=== PATIENT | male | born 1930 | race Caucasian/White ===

== ENCOUNTER → 2016-04-30 | Outpatient (CLI) | payer OTHER ==
--- NOTE | 2016-04-30 13:35 | DX ---
KUB, 2 views. History: Rule out constipation. Comparison Study: February 25, 2016. Findings: Extensive postsurgical changes involve the lumbar spine and bilateral hips, similar to prev ious study. Bowel gas pattern is within normal limits, without evidence of small bowel distention or significant fecal retention. Impression: Negative study. Prior lumbar spine and bilateral hip surgery.
== END ==
LOC: BMCIMAGING 12:55
PROVIDERS: ATTEND Physician Assistant
DX: Z13.818 Encounter for screening for other digestive system disorders (principal)

== ENCOUNTER → 2016-06-10 | Outpatient (CLI) | payer OTHER | LOC: BMCIMAGING 14:19 | PROVIDERS: ATTEND Family Medicine | DX: M89.8X1 Other specified disorders of bone, shoulder (principal) ==

== ENCOUNTER → 2016-06-22 | Outpatient (CLI) | payer OTHER | LOC: FIMAGING 14:29 | PROVIDERS: ATTEND Internal Medicine | DX: M25.811 Other specified joint disorders, right shoulder (principal); M12.9 Arthropathy, unspecified; R91.8 Other nonspecific abnormal finding of lung field; I25.10 Atherosclerotic heart disease of native coronary artery without angina pectoris ==

== ENCOUNTER 2017-01-08 11:16 | Inpatient (IN) | payer OTHER ==
--- NOTE | 2017-01-08 12:21 | EDPHY ---
General Narrative: CHIEF COMPLAINT: Weakness of right lower leg HISTORY OF PRESENT ILLNESS: Patient complains of right lower extremity weakness and pain. This started last night. It has been steadily worsening. He has a history of neck pain and remotely low back pain and stenosis status post surgical correction. He says that the neck pain has been ongoing and he has seen his primary care physician and neurologist. He has an MRI of the neck ordered on Wednesday for this. However yesterday the lower extremity weakness worsened and he had a brief episode of paralysis of both legs. This lasted for several minutes and then resolved. Today as weakness of the right lower extremity. He has no saddle anesthesia. No incontinence of bowel or bladder. He has continual neck and low back pain. REVIEW OF SYSTEMS: Ten systems reviewed and are negative unless otherwise noted in the HPI PCP: Dr. Sanabria SPECIALISTS: Dr. Lamb PAST MEDICAL HISTORY: Recurrent DVTs, hypertension, cervical neck pain PAST SURGICAL HISTORY: Lumbar decompression with laminectomy SOCIAL HISTORY: None occur. No alcohol or illicit substance use. Lives in independent living at [facility] FAMILY HISTORY: Noncontributory EXAMINATION General Appearance: Alert, no distress Head: normocephalic, atraumatic. No Leos sign. No clonus. No hematoma or depression. Eyes: Bilateral arcus note. Pupils equal and round, no conjunctival pallor or injection. EOMs intact. No nystagmus ENT, Mouth: Mucous membranes moist. Airway patent Neck: Normal inspection, supple, non-tender. Painless range of motion all planes. No crepitus, step-off or deformity. Respiratory: Lungs are clear to auscultation. No wheezing or rhonchi or crackles Cardiovascular: Regular rate and rhythm. No murmur Gastrointestinal: Abdomen is soft and nontender Back: non-tender, no bony abnormalities Neurological: GCS 15. A&O, nonfocal, normal gait with his cane. There is weakness in the right lower extremity. The strength at the knee and ankle is 2/ 5 compared to 5/5 in the left lower extremity. No foot drop. Normal sharp and dull sensation. Normal proprioception of the right great toe. Patellar reflexes symmetric Skin: Warm and dry, no rash. No petechiae or purpura. Multiple age spots Extremities: Nontender, no pedal edema. Decreased range of motion of the right lower extremity. Range of motion of the left leg and both arms are intact. Psychiatric: Mood and affect normal DIFFERENTIAL DIAGNOSES: Including but not limited to lumbar radiculopathy, cervical radiculopathy, acute cord compression, cauda equina, weakness, dehydration, neuropathy MDM: 12:10 p.m. Intermittent and increasing weakness of the right lower extremity with a short episode of lower extremity paralysis yesterday. Patient is on Coumadin. He has had ongoing neck pain and has an MRI ordered for Wednesday. He has a history of low back pain status post surgery for stenosis. I have ordered CT scan of the head due to the fall and taking Coumadin, despite any outward signs of trauma or evidence of intracranial hemorrhage. I have also ordered MRIs of the cervical spine and lumbar spine. Case discussed with Dr. Mead and he is in agreement with the plan thus far. 1:02 p.m. Case discussed with radiologist Dr. Louie. CT scan of the head reveals no acute findings. There are chronic changes as noted 2:15 p.m. Patient re-evaluated. I have updated him regarding the negative CT scan findings. He is currently being taken to MRI at this time. He is in no acute distress. 3:20 p.m. Patient re-evaluated. He is just return for MRI. He has complained of increasing pain in the right leg, thus I have ordered pain medication. Examination at this time reveals hyper paresthesia of the right anterior thigh. 3:35 p.m. Contacted by radiologist Dr. Louie. MRI of the cervical spine reveals multilevel degenerative disc disease. No acute findings. MRI of the lumbar spine is not yet been read. 4:12 p.m. Contacted by radiologist Dr. Louie. MRI of the lumbar spine findings as documented. Complex findings. Reviewed in detail with him. Case discussed with Dr. Simmons, and we will evaluate in conjunction. 4:45 p.m. Case discussed with neurosurgeon Dr. Medina. I discussed the MRI findings of the lumbar spine. She recommends that the patient stay in the hospital for evaluation and she will provide consultation. 4:53 p.m. I have updated the patient regarding the findings and the recommendation by neurosurgeon, myself and Dr. Simmons that he stay in the hospital. He is declining to stay at this time. He has agreed to attempt a road test prior to making this decision. 5:10 p.m. After multiple conversations with the patient with myself and Dr. Simmons, the patient has agreed to stay. I do feel this is the safest drop for the patient as he is very unsteady on his feet with significant weakness of the right lower extremity. Neurosurgeon Dr. Medina will provide consultation. I will contact the hospitalist for admission. 5:18 p.m. Case discussed with hospitalist Dr. Herbert, and patient will be admitted to hospitalist. He is admitted in stable condition. Neurosurgery Dr. Medina will provide consultation. - Diagnostics Imaging Results: Imaging Impressions Head CT 01/08/17 12:23 Impression: 1. Elderly brain with atrophy and probable white matter small vessel disease. 2. Negative for hemorrhage or other posttraumatic sequela. Results called and discussed with Mendez Eng PA-C on 01/08/2017 at 13:05 Cervical Spine MRI 01/08/17 12:33 Impression: 1. Negative for central canal stenosis or cord compression. 2. Central and rightward ventral defect consistent with a small subligamentous disk herniation at C7-T1 resulting in mild impingement on the right lateral recess as well as the medial aspect of the right neural foramen. 3. Multilevel spondylosis as detailed above with findings at each specific level. Results called and discussed with Mendez Eng PA-C on 01/08/2017 at 1532 hours. Lumbar Spine MRI 01/08/17 12:33 Impression: 1. Severe central canal stenosis and bilateral lateral recess stenosis at L1-L2 level. 2. Borderline central canal stenosis at L3-L4. 3. Equivocal nerve root clumping could reflect arachnoiditis. 4. Postoperative changes of lumbar fusion at L4-L5. 5. Multilevel spondylosis with findings at specific levels detailed above. Results called and discussed with Mendez Eng PA-C on 01/08/2017 at 1611 hours. - History Smoking Status: Former smoker - Objective Vital Signs: Initial Vital Signs Temperature (C) 98.1 F 01/08/17 11:20 Heart Rate 87 01/08/17 11:20 Respiratory Rate 16 01/08/17 11:20 Blood Pressure 168/119 H 01/08/17 11:20 O2 Sat (%) 98 01/08/17 11:20 O2 Delivery Mode Room Air Allergies/Adverse Reactions: Penicillins Allergy (Verified 05/14/15 13:07) Home Medications: Medication Instructions Recorded Coumadin 05/14/15 Lisinopril 05/14/15 Tamsulosin HCl 05/14/15 Tiazac 05/14/15 Laboratory Results: Laboratory Results 01/08/17 12:25 01/08/17 12:25 01/08/17 01/08/17 01/08/17 12:25 12:25 12:25 WBC RBC Hgb Hct 41.4 % % (40.0-51.0) MCV MCH MCHC RDW Plt Count MPV Neut % (Auto) Lymph % (Auto) [place] % (Auto) Eos % (Auto) Baso % (Auto) Nucleat RBC Rel Count Absolute Neuts (auto) Absolute Lymphs (auto) Absolute Monos (auto) Absolute Eos (auto) Absolute Basos (auto) Absolute Nucleated RBC Immature Gran % Immature Gran # ESR 48 MM/HR H MM/HR (0-20) PT 33.1 SEC H SEC (12.0-15.0) INR 3.19 H (0.83-1.16) APTT 47.9 SEC H SEC (23.0-38.0) Sodium Potassium Chloride Carbon Dioxide Anion Gap BUN Creatinine Estimated GFR Glucose Calcium C-Reactive Protein 128.0 mg/L H mg/L (<10.0) 01/08/17 01/08/17 12:25 12:25 WBC 11.41 10^3/uL H 10^3/uL (3.80-9.50) RBC 4.87 10^6/uL 10^6/uL (4.40-6.38) Hgb 14.4 g/dL g/dL (13.7-17.5) Hct 41.0 % % (40.0-51.0) MCV 84.2 fL fL (81.5-99.8) MCH 29.6 pg pg (27.9-34.1) MCHC 35.1 g/dL g/dL (32.4-36.7) RDW 13.7 % % (11.5-15.2) Plt Count 229 10^3/uL 10^3/uL (150-400) MPV 8.9 fL fL (8.7-11.7) Neut % (Auto) 82.4 % H % (39.3-74.2) Lymph % (Auto) 5.3 % L % (15.0-45.0) [place] % (Auto) 11.3 % % (4.5-13.0) Eos % (Auto) 0.1 % L % (0.6-7.6) Baso % (Auto) 0.4 % % (0.3-1.7) Nucleat RBC Rel Count 0.0 % % (0.0-0.2) Absolute Neuts (auto) 9.40 10^3/uL H 10^3/uL (1.70-6.50) Absolute Lymphs (auto) 0.61 10^3/uL L 10^3/uL (1.00-3.00) Absolute Monos (auto) 1.29 10^3/uL H 10^3/uL (0.30-0.80) Absolute Eos (auto) 0.01 10^3/uL L 10^3/uL (0.03-0.40) Absolute Basos (auto) 0.04 10^3/uL 10^3/uL (0.02-0.10) Absolute Nucleated RBC 0.00 10^3/uL 10^3/uL (0-0.01) Immature Gran % 0.5 % % (0.0-1.1) Immature Gran # 0.06 10^3/uL 10^3/uL (0.00-0.10) ESR PT INR APTT Sodium 137 mEq/L mEq/L (134-144) Potassium 3.4 mEq/L L mEq/L (3.5-5.2) Chloride 102 mEq/L mEq/L (97-110) Carbon Dioxide 22 mEq/l mEq/l (22-31) Anion Gap 13 mEq/L mEq/L (8-16) BUN 16 mg/dL mg/dL (7-23) Creatinine 1.3 mg/dL mg/dL (0.7-1.3) Estimated GFR 53 Glucose 106 mg/dL H mg/dL (70-100) Calcium 9.7 mg/dL mg/dL (8.5-10.4) C-Reactive Protein Medications Given: Discontinued Medications Morphine Sulfate (Morphine) 2 mg IVP EDNOW ONE Stop: 01/08/17 15:23 Last Admin: 01/08/17 15:51 Dose: 2 mg Ondansetron HCl (Zofran) 4 mg IVP EDNOW ONE Stop: 01/08/17 15:23 Last Admin: 01/08/17 15:51 Dose: 4 mg Departure - Departure Disposition: [facility] Inpatient Acute Clinical Impression: Right leg weakness, Spinal stenosis, lumbar region with neurogenic claudication , Hyperesthesia Condition: Good Instructions: Lumbar Spinal Stenosis (ED) Referrals: Toño Sanabria MD [Primary Care Provider] - As per Instructions
[2017-01-08 12:34] LABS: % IMMATURE GRANULYOCYTES 0.5 % (0.0-1.1); ABSOLUTE IMMATURE GRANULOCYTES 0.06 10^3/uL (0.00-0.10); ADD DIFF? NO; ADD MORPH? NO; ADD SCAN? NO; ATYPICAL LYMPHOCYTE FLAG 0 (0-99); FRAGMENT RBC FLAG 0 (0-99); HEMOGLOBIN 14.4 g/dL (13.7-17.5); LEFT SHIFT FLG 0 (0-99); LIPEMIA HEMOLYSIS FLAG 90 (0-99); MEAN CELL HEMOGLOBIN 29.6 pg (27.9-34.1); MEAN CELL HEMOGLOBIN CONCENTR. 35.1 g/dL (32.4-36.7); MEAN CELL VOLUME 84.2 fL (81.5-99.8); MEAN PLATELET VOLUME 8.9 fL (8.7-11.7); PLATELET CLUMPS FLAG 0 (0-99); PLATELET COUNT 229 10^3/uL (150-400); RED BLOOD CELL COUNT 4.87 10^6/uL (4.40-6.38); RED CELL DISTRIBUTION WIDTH 13.7 % (11.5-15.2)
[2017-01-08 12:45] LABS: INR 3.19 (0.83-1.16); PROTIME(PATIENT) 33.1 SEC (12.0-15.0)
[2017-01-08 12:46] LABS: APTT 47.9 SEC (23.0-38.0)
[2017-01-08 12:51] LABS: ANION GAP 13 mEq/L (8-16); CALCIUM 9.7 mg/dL (8.5-10.4); CARBON DIOXIDE 22 mEq/l (22-31); CHLORIDE 102 mEq/L (97-110); CREATININE 1.3 mg/dL (0.7-1.3); GLOMERULAR FILTRATION RATE 53; GLUCOSE 106 mg/dL (70-100); POTASSIUM 3.4 mEq/L (3.5-5.2); SODIUM 137 mEq/L (134-144)
[2017-01-08 13:27] LABS: HEMATOCRIT 41.4 % (40.0-51.0)
[2017-01-08] MEDS ORDERED: ONDANSETRON 4 MG/2 ML VIAL IVP ONE (15:22)
[2017-01-08] MEDS ORDERED: ONDANSETRON DISINTEGRATING 4 MG TAB PO PRN (18:19)
[2017-01-08] MEDS ORDERED: ALBUTEROL 3 ML DEYVIAL IH PRN (18:19)
[2017-01-08] MEDS ORDERED: LORazepam 0.5 MG TAB PO PRN (18:19)
[2017-01-08] MEDS ORDERED: ACETAMINOPHEN 325 MG TAB PO PRN (18:19)
[2017-01-08] MEDS ORDERED: ONDANSETRON 4 MG/2 ML VIAL IVP PRN (18:19)
[2017-01-08] MEDS ORDERED: hydrALAZINE 20 MG/ML VIAL IVP PRN (18:21)
[2017-01-08] MEDS ORDERED: PROTOCOL MAGNESIUM 1 DOSE IV PRN (18:21)
[2017-01-08] MEDS ORDERED: PROTOCOL POTASSIUM 1 DOSE MISC PRN (18:21)
--- NOTE | 2017-01-08 19:28 | GCON ---
[f rep st] CONSULTATION DATE OF CONSULTATION: 01/08/2017 Consultation in the emergency room at approximately 5:30 p.m. REASON FOR CONSULTATION: Weakness of right lower extremity, status post fall. HOSPITAL COURSE/HISTORY OF MAJOR MEDICAL FINDINGS: Patient is an 86-year-old gentleman who last night had a fall at home. He does use a cane normally to ambulate and has been seeing a neurologist for the neuropathy in his feet as well as his frequent falls. He did have 3 episodes of stool incontinence, which he saw a GI doctor for, which they told him to monitor closely. He does not have any saddle anesthesia or any groin numbness. He denies any arm numbness, tingling, pain or weakness, but based on his recurrent falls he was recommended to undergo an MRI of his neck. He presented to the ER today after having a fall last night, as his was already here at [facility] obtaining an MRI of her neck and wanted to have his leg checked out. REVIEW OF SYSTEMS: Negative other than what is stated in the HPI. Please see the pertinent negatives, pertinent positives. PAST MEDICAL HISTORY: Significant for recurrent DVTs for which he is on Coumadin for, hypertension, cervical neck pain. PAST SURGICAL HISTORY: Significant for lumbar fusion done in [place] back in 2005. He has had bilateral hip replacements as well as a tonsillectomy. SOCIAL HISTORY: The patient does not drink any alcohol or use illicit drugs. He lives in an independent living facility with his who is at bedside today. FAMILY HISTORY: Noncontributory. ALLERGIES: Penicillin. MEDICATIONS: Coumadin, lisinopril, tamsulosin, and Tiazac. PHYSICAL EXAM: VITALS: Temperature is 98.1, heart rate is 87, respiratory rate is 16, BP is 160/119. He is 98% on room air. NEUROLOGIC: Patient is in no acute distress. He is alert and oriented x3. Answers questions appropriately. His affect is appropriate to given situation. Cranial nerves 2- 12 are grossly intact. EOMI and PERRLA. The patient is 5/5 and equal in his bilateral upper and bilateral lower extremities including his deltoids, triceps , biceps, wrist flexors, extensors, interossei, intrinsic platform inspector, iliopsoas, hamstrings, quadriceps, plantar flexion, dorsiflexion, EHL. His sensation is intact in his bilateral upper and bilateral lower extremities. Negative Babinski. Negative clonus bilaterally. Patient underwent a head CT, which was negative for any acute intracranial abnormality. Patient underwent a cervical spine MRI, which is significant for a central disk bulge at T2-3 with an effacement of the subarachnoid space without definitive cord compression. This is only evaluated in the sagittal view. At C7-T1, there is mild impingement of the right lateral recess but there is no cord compression noted. Lumbar spine MRI demonstrated severe canal stenosis with bilateral recess stenosis at L1-2 with borderline canal stenosis at L3-4. There are postoperative changes and lumbar fusion noted at L4-5. ASSESSMENT AND PLAN: Patient is an 86-year-old gentleman with evidence of lumbar stenosis at L2-3, who has been having frequent falls. He will be admitted to the medical service for optimization of his medical management. We would recommend PT/OT at this time and Medrol dose pack, if okay with medicine. He was seen by Dr. Vásquez in the emergency room. He is currently on Coumadin, so would need to be cleared by Medicine to come to be off of this for an L2/3 ILESI if PT and Medrol dose fail to improve his symptoms. Will continue to follow, please notify neurosurgery if any change in neuro/motor exam. /[id number]/MODL MTDD
--- NOTE | 2017-01-08 19:34 | PDGENHP ---
History and Physical - Chief Complaint Right leg weakness - History of Present Illness 86 yo male with hx of back pain and LE neuropathy p/w right leg weakness since yesterday night. In the ED, MRI obtained and c/w significant Lumbar stenosis. Dr. Medina with NS consulted. He has no saddle anesthesia. No incontinence of bowel or bladder. Yesterday he also had a brief transient episode of paralysis of both legs. He is currently able to move both legs but ambulation is difficult. He has a history of neck pain and remotely low back pain and stenosis status post surgical correction. He says that the neck pain has been ongoing and he has seen his primary care physician and neurologist. He has an MRI of the neck ordered on Wednesday for this. He denies fevers, SOB, N/V, leg edema. No other weakness PCP: Dr. Sanabria PAST MEDICAL HISTORY: Recurrent DVTs, hypertension, cervical neck pain PAST SURGICAL HISTORY: Lumbar decompression with laminectomy SOCIAL HISTORY: None occur. No alcohol or illicit substance use. Lives in independent living at [facility] FAMILY HISTORY: Noncontributory History Information - Allergies/Home Medication List Allergies/Adverse Reactions: Penicillins Allergy (Verified 05/14/15 13:07) Home Medications: Carvedilol [Coreg (*)] 12.5 mg PO BIDMEAL 01/08/17 [Last Taken 01/07/17] Lisinopril [Zestril 20 mg (*)] 20 mg PO DAILY 01/08/17 [Last Taken 01/07/17] Tamsulosin HCl [Flomax 0.4 MG (*)] 0.4 mg PO DAILY 01/08/17 [Last Taken 01/07/17 ] Warfarin Sodium [Coumadin 1MG (*)] 0.5 mg PO MOTUWEFRSA 01/08/17 [Last Taken ] Warfarin Sodium [Coumadin 1MG (*)] 1 mg PO SUTH 01/08/17 [Last Taken 01/07/17] Warfarin Sodium [Coumadin 3MG (*)] 3 mg PO SUTH 01/08/17 [Last Taken 01/07/17] traZODone [traZODONE 50MG (*)] 50 mg PO HS 01/08/17 [Last Taken 01/07/17] I have personally reviewed and updated: family history, medical history, social history - Social History Smoking Status: Former smoker Review of Systems Review of Systems: ROS: 10pt was reviewed & negative except for what was stated in HPI & below Physical Exam Physical Exam: Temp Pulse Resp BP Pulse Ox 36.8 C 98 16 166/90 H 96 01/08/17 18:43 01/08/17 18:43 01/08/17 18:43 01/08/17 18:43 01/08/17 18:43 Constitutional: no apparent distress, appears nourished Eyes: PERRL, EOMI Ears, Nose, Mouth, Throat: moist mucous membranes, hearing normal Cardiovascular: regular rate and rhythym Respiratory: no respiratory distress, no rales or rhonchi, clear to auscultation Gastrointestinal: normoactive bowel sounds, soft, non-tender abdomen Skin: warm, normal color Neurologic: AAOx3 Psychiatric: interacting appropriately, not anxious, not encephalopathic, thought process linear Lab Data & Imaging Review 01/08/17 12:25 01/08/17 12:25 WBC 11.41 10^3/uL (3.80-9.50) H 01/08/17 12:25 RBC 4.87 10^6/uL (4.40-6.38) 01/08/17 12:25 Hgb 14.4 g/dL (13.7-17.5) 01/08/17 12:25 Hct 41.4 % (40.0-51.0) 01/08/17 12:25 MCV 84.2 fL (81.5-99.8) 01/08/17 12:25 MCH 29.6 pg (27.9-34.1) 01/08/17 12:25 MCHC 35.1 g/dL (32.4-36.7) 01/08/17 12:25 RDW 13.7 % (11.5-15.2) 01/08/17 12:25 Plt Count 229 10^3/uL (150-400) 01/08/17 12:25 MPV 8.9 fL (8.7-11.7) 01/08/17 12:25 Neut % (Auto) 82.4 % (39.3-74.2) H 01/08/17 12:25 Lymph % (Auto) 5.3 % (15.0-45.0) L 01/08/17 12:25 [place] % (Auto) 11.3 % (4.5-13.0) 01/08/17 12:25 Eos % (Auto) 0.1 % (0.6-7.6) L 01/08/17 12:25 Baso % (Auto) 0.4 % (0.3-1.7) 01/08/17 12:25 Nucleat RBC Rel Count 0.0 % (0.0-0.2) 01/08/17 12:25 Absolute Neuts (auto) 9.40 10^3/uL (1.70-6.50) H 01/08/17 12:25 Absolute Lymphs (auto) 0.61 10^3/uL (1.00-3.00) L 01/08/17 12:25 Absolute Monos (auto) 1.29 10^3/uL (0.30-0.80) H 01/08/17 12:25 Absolute Eos (auto) 0.01 10^3/uL (0.03-0.40) L 01/08/17 12:25 Absolute Basos (auto) 0.04 10^3/uL (0.02-0.10) 01/08/17 12:25 Absolute Nucleated RBC 0.00 10^3/uL (0-0.01) 01/08/17 12:25 Immature Gran % 0.5 % (0.0-1.1) 01/08/17 12:25 Immature Gran # 0.06 10^3/uL (0.00-0.10) 01/08/17 12:25 ESR 48 MM/HR (0-20) H 01/08/17 12:25 PT 33.1 SEC (12.0-15.0) H 01/08/17 12:25 INR 3.19 (0.83-1.16) H 01/08/17 12:25 APTT 47.9 SEC (23.0-38.0) H 01/08/17 12:25 Sodium 137 mEq/L (134-144) 01/08/17 12:25 Potassium 3.4 mEq/L (3.5-5.2) L 01/08/17 12:25 Chloride 102 mEq/L (97-110) 01/08/17 12:25 Carbon Dioxide 22 mEq/l (22-31) 01/08/17 12:25 Anion Gap 13 mEq/L (8-16) 01/08/17 12:25 BUN 16 mg/dL (7-23) 01/08/17 12:25 Creatinine 1.3 mg/dL (0.7-1.3) 01/08/17 12:25 Estimated GFR 53 01/08/17 12:25 Glucose 106 mg/dL (70-100) H 01/08/17 12:25 Calcium 9.7 mg/dL (8.5-10.4) 01/08/17 12:25 C-Reactive Protein 128.0 mg/L (<10.0) H 01/08/17 12:25 Assessment & Plan Assessment: #Right leg weakness #Lumbar stenosis #LE Neuropathy #HTN, elevated BP #Chronic AC with elevated INR with no evidence of bleed #Hypokalemia, mild Plan: -Admit -Dr. Medina and NS to eval -Pain and symptom mgmt -Pharm to dose coumadin. CT Brain negative -restart BP meds, he has not taken any today -Replace K per protocol. Check Mg -PT/OT
[2017-01-08 20:45] LABS: POTASSIUM 3.4 mEq/L (3.5-5.2)
[2017-01-08] MEDS ORDERED: POTASSIUM CL 10 MEQ TAB PO ONE (20:47)
[2017-01-08] MEDS: CARVEDILOL 25 MG TAB PO SCH (20:53)
[2017-01-08] MEDS: LISINOPRIL 20 MG TAB PO SCH (20:54)
[2017-01-08] MEDS: traZODone 50 MG TAB PO SCH (20:55)
[2017-01-09] MEDS: oxyCODONE IR 5 MG TAB PO PRN ×5 (02:15→21:11)
[2017-01-09 05:39] LABS: % IMMATURE GRANULYOCYTES 0.5 % (0.0-1.1); ABSOLUTE IMMATURE GRANULOCYTES 0.05 10^3/uL (0.00-0.10); ADD DIFF? NO; ADD MORPH? NO; ADD SCAN? NO; ATYPICAL LYMPHOCYTE FLAG 0 (0-99); FRAGMENT RBC FLAG 0 (0-99); HEMATOCRIT 33.9 % (40.0-51.0); HEMOGLOBIN 11.7 g/dL (13.7-17.5); LEFT SHIFT FLG 10 (0-99); LIPEMIA HEMOLYSIS FLAG 90 (0-99); MEAN CELL HEMOGLOBIN 29.4 pg (27.9-34.1); MEAN CELL HEMOGLOBIN CONCENTR. 34.5 g/dL (32.4-36.7); MEAN CELL VOLUME 85.2 fL (81.5-99.8); MEAN PLATELET VOLUME 9.5 fL (8.7-11.7); PLATELET CLUMPS FLAG 0 (0-99); PLATELET COUNT 194 10^3/uL (150-400); RED BLOOD CELL COUNT 3.98 10^6/uL (4.40-6.38); RED CELL DISTRIBUTION WIDTH 13.8 % (11.5-15.2)
[2017-01-09 05:56] LABS: ANION GAP 11 mEq/L (8-16); CALCIUM 9.2 mg/dL (8.5-10.4); CARBON DIOXIDE 21 mEq/l (22-31); CHLORIDE 104 mEq/L (97-110); CREATININE 1.4 mg/dL (0.7-1.3); GLOMERULAR FILTRATION RATE 48; GLUCOSE 98 mg/dL (70-100); MAGNESIUM 1.8 mg/dL (1.6-2.3); POTASSIUM 3.7 mEq/L (3.5-5.2); SODIUM 136 mEq/L (134-144)
[2017-01-09] MEDS: TAMSULOSIN HCL 0.4 MG CAP PO SCH (07:48)
[2017-01-09] MEDS: LISINOPRIL 20 MG TAB PO SCH (07:48)
[2017-01-09] MEDS: CARVEDILOL 25 MG TAB PO SCH ×2 (07:48→18:07)
--- NOTE | 2017-01-09 08:26 | NEUSURGPN ---
Assessment/Plan: 86 y/o male with lumbar stenosis at L1/2 with right leg weakness and pain. 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 He also has a T2/3 disc bulge that is noted on c spine MRI. Can consider thoracic MRI if no improvement with LE symptoms, worsening myelopathic symptoms -Pain improved this morning -Would continue to optimize pain management -PT/OT -Can try Medrol dose pack if compatible with anticoagulation -If no progress can consider L1/2 ILESI but would need need to normalize INR -Discussed with Dr. Lyle -Patient should follow up with Dr. Lyle in in clinic 2-3 weeks after discharge -Please notify NS with any change in neuro/motor exam Subjective: leg pain improved, strength stable. Objective: NAD A&Ox3 MAEx4 5/5 and equal in BUE and BLE, except right quad/IL 4-/5. Decreased sensation in feet - Physician Discussed Patient with : [facility] Neurosurgery Physical Exam - Vitals, I&O, Labs I and O 01/08/17 01/09/17 01/10/17 05:59 05:59 05:59 Output Total 100 Balance -100 Weight 83.915 kg Output: Urine (ml) 100 Urinal 100 Other: Intake Quantity Yes Sufficient Number of Voids Urinal 2 Vital Signs Temp Pulse Resp BP Pulse Ox 37.1 C 60 12 144/64 H 93 01/09/17 07:29 01/09/17 07:48 01/09/17 07:29 01/09/17 07:48 01/09/17 07:29 Laboratory Results 01/09/17 05:01 01/09/17 05:01 ICD10 Worksheet Patient Problems: Problems Problem Status Onset Hyperesthesia Acute Right leg weakness Acute Spinal stenosis, lumbar region with neurogenic claudication Acute
[2017-01-09 12:04] LABS: INR 3.16 (0.83-1.16); PROTIME(PATIENT) 32.9 SEC (12.0-15.0)
[2017-01-09] MEDS ORDERED: POTASSIUM CL 10 MEQ TAB PO ONE ×2 (14:11→19:28)
--- NOTE | 2017-01-09 14:46 | HOSPPROG ---
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 RLE weakness: attributable to L1L2 spine disease start steroids PT/OT daily appreciate neurosurgery input htn: continue meds VTE: warfarin therapy not a contraindication to steroids hold warfarin today given supratherapeutic INR pain: prn oxycodone dispo :inpatient Subjective: 35 minutes spent at bedside discussing plan of care ;45 min total Objective: Vital Signs Temp Pulse Resp BP Pulse Ox 36.7 C 55 L 10 L 117/59 L 95 01/09/17 11:57 01/09/17 11:57 01/09/17 11:57 01/09/17 11:57 01/09/17 11:57 Laboratory Results 01/09/17 05:01 01/09/17 05:01 01/08/17 01/09/17 01/10/17 05:59 05:59 05:59 Output Total 100 Balance -100 PT 32.9 SEC (12.0-15.0) H 01/09/17 10:55 INR 3.16 (0.83-1.16) H 01/09/17 10:55 - Physical Exam Constitutional: no apparent distress, appears nourished Eyes: PERRL, anicteric sclera Ears, Nose, Mouth, Throat: moist mucous membranes, hearing normal Cardiovascular: regular rate and rhythym, no murmur, rub, or gallop Respiratory: no respiratory distress, no rales or rhonchi Gastrointestinal: normoactive bowel sounds, soft, non-tender abdomen Genitourinary: no bladder fullness, No wells in urethra Skin: warm, normal color Musculoskeletal: full muscle strength, no muscle tenderness Neurologic: AAOx3, sensation intact bilaterally Psychiatric: interacting appropriately ICD10 Worksheet Patient Problems: Problems Problem Status Onset Hyperesthesia Acute Right leg weakness Acute Spinal stenosis, lumbar region with neurogenic claudication Acute
--- NOTE | 2017-01-09 15:06 | ASMTCMCOM ---
CM Note CM Note Notes: OT eval pending, BUSINESS REPRESENTATIVE clears pt, PT rec HHC vs. SNF. Spoke w pt and Consuelo about d/c plan of care. Pt may opt for steroid injections to treat spine disease and hopes he will progress to be able to return home to the [facility] (there he can access PT/OT). Pt will consider SNF if he does not make progress. Left SNF choice list. Pt has a good local support system. Date Signed: 01/09/2017 03:05 PM Electronically Signed By:COSMO Cannon
--- NOTE | 2017-01-09 15:13 | PDMN ---
Medical Necessity Medical necessity: C/M review: est. 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
[2017-01-09] MEDS: methylPREDNISolone 4 MG TAB PO SCH ×4 (15:17→20:29)
[2017-01-09 18:32] LABS: POTASSIUM 3.8 mEq/L (3.5-5.2)
[2017-01-09] MEDS: traZODone 50 MG TAB PO SCH (20:30)
[2017-01-10 05:30] LABS: INR 3.67 (0.83-1.16); PROTIME(PATIENT) 37.1 SEC (12.0-15.0)
[2017-01-10 05:33] LABS: MAGNESIUM 2.2 mg/dL (1.6-2.3); POTASSIUM 4.3 mEq/L (3.5-5.2)
[2017-01-10] MEDS: oxyCODONE IR 5 MG TAB PO PRN ×4 (08:27→23:49)
[2017-01-10] MEDS: CARVEDILOL 25 MG TAB PO SCH ×2 (08:29→18:37)
[2017-01-10] MEDS: LISINOPRIL 20 MG TAB PO SCH (08:29)
[2017-01-10] MEDS: TAMSULOSIN HCL 0.4 MG CAP PO SCH (08:30)
[2017-01-10] MEDS: methylPREDNISolone 4 MG TAB PO SCH ×3 (08:30→18:37)
--- NOTE | 2017-01-10 12:00 | HOSPPROG ---
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 RLE weakness: attributable to L1L2 spine disease start steroids PT/OT daily appreciate neurosurgery input htn: continue meds VTE: warfarin therapy not a contraindication to steroids hold warfarin today given supratherapeutic INR pain: prn oxycodone dispo :inpatient Subjective: doing better today. walked w PT and walker Objective: Vital Signs Temp Pulse Resp BP Pulse Ox 36.5 C 71 16 188/83 H 97 01/10/17 08:00 01/10/17 08:29 01/10/17 08:00 01/10/17 08:29 01/10/17 08:00 Laboratory Results 01/10/17 05:07 01/09/17 01/10/17 01/11/17 05:59 05:59 05:59 Intake Total 1000 Output Total 450 400 Balance 550 -400 PT 37.1 SEC (12.0-15.0) H 01/10/17 05:07 INR 3.67 (0.83-1.16) H 01/10/17 05:07 - Physical Exam Constitutional: no apparent distress, appears nourished Eyes: PERRL, anicteric sclera Ears, Nose, Mouth, Throat: moist mucous membranes, hearing normal Cardiovascular: regular rate and rhythym, no murmur, rub, or gallop Respiratory: no respiratory distress, no rales or rhonchi Gastrointestinal: normoactive bowel sounds, soft, non-tender abdomen Genitourinary: no bladder fullness, No wells in urethra Skin: warm, normal color Musculoskeletal: No full muscle strength Neurologic: AAOx3 ICD10 Worksheet Patient Problems: Problems Problem Status Onset Hyperesthesia Acute Right leg weakness Acute Spinal stenosis, lumbar region with neurogenic claudication Acute
--- NOTE | 2017-01-10 14:46 | NEUSURGPN ---
Assessment/Plan: 86 y/o male with lumbar stenosis at L1/2 with right leg weakness and pain. 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 He also has a T2/3 disc bulge that is noted on c spine MRI. Can consider thoracic MRI if no improvement with LE symptoms, worsening myelopathic symptoms -Pain and right leg strength improved this morning -Would continue to optimize pain management -PT/OT -Continue steroids -If no progress can consider L1/2 ILESI but would need need to normalize INR -Discussed with Dr. Lyle -Patient should follow up with Dr. Lyle in in clinic 2-3 weeks after discharge -Please notify NS with any change in neuro/motor exam Subjective: pain and strength improved. Pain worse with movement Objective: NAD A&Ox3 MAEx4, 5/5 adn equal except right IL/quad 4+/5 - Physician Discussed Patient with : Th[facility] Neurosurgery Physical Exam - Vitals, I&O, Labs I and O 01/09/17 01/10/17 01/11/17 05:59 05:59 05:59 Intake Total 1000 Output Total 450 400 Balance 550 -400 Intake: Oral (ml) 1000 Output: Urine (ml) 450 400 Urinal 450 400 Other: Intake Quantity Yes Sufficient Number of Voids Urinal 1 Post Void Residual Scan Volume (ml) Urinal 619 Vital Signs Temp Pulse Resp BP Pulse Ox 36.5 C 76 16 142/71 H 96 01/10/17 08:00 01/10/17 12:00 01/10/17 12:00 01/10/17 12:00 01/10/17 12:00 Laboratory Results 01/10/17 05:07 ICD10 Worksheet Patient Problems: Problems Problem Status Onset Hyperesthesia Acute Right leg weakness Acute Spinal stenosis, lumbar region with neurogenic claudication Acute
--- NOTE | 2017-01-10 17:56 | ASMTCMCOM ---
CM Note CM Note Notes: Long talk with patient and . They are concerned that the steroids and pain medications won't be a cure and wondered what to do if patient has a reccurence of leg weakness. I encouraged them to call 911 and come back to the hospital and we would figure aout a new plan. At this time patient will be going home with HC. They were given a HC list and decided on [facility]. [facility] notified and sent a referral. Date Signed: 01/10/2017 05:56 PM Electronically Signed By:Felicita Mitchell LCSW
[2017-01-10] MEDS ORDERED: methylPREDNISolone 4 MG TAB PO SCH (21:00)
[2017-01-10] MEDS: traZODone 50 MG TAB PO SCH (21:10)
[2017-01-11 05:04] LABS: INR 3.91 (0.83-1.16)
[2017-01-11] MEDS ORDERED: hydrALAZINE 20 MG/ML VIAL IVP PRN (07:17)
--- NOTE | 2017-01-11 07:20 | NEUSURGPN ---
Assessment/Plan: Assessment: 86 y/o male admitted with lumbar stenosis at L1/2 with right leg weakness and pain Plan: -he has diffuse degeneration in cervical spine without cord compression. He also has a T2/3 disc bulge that is noted on C spine MRI. Can consider thoracic MRI if no improvement with LE symptoms or with worsening myelopathic symptoms. Pt better this am. Strength is 5/5 -Pain and right leg strength continue to improve this morning -ok from NS to dc home if ok with IM -Would continue to optimize pain management/continue with steroids -continue with PT/OT -Continue steroids -Discussed with Dr. Lyle -Patient should follow up with Dr. Lyle in in clinic 2-3 weeks after discharge -Please notify NS with any change in neuro/motor exam -pt understands and agrees Subjective: Awake and alert. NAD. Eating/drinking and voiding. No f/c/n/v/d. No pedraza/neck/ chest/abd or gu complaints. Objective: AAO x 3, PERRLA/EOMI CN 2-12 grossly intact +lt touch NAD MAEx4 5/5 BUE/BLE = Neuro Check Frequency: per routine Urinary Catheter in Place: No - Physician Discussed Patient with : [facility] Neurosurgery Physical Exam - Vitals, I&O, Labs I and O 01/10/17 01/11/17 01/12/17 05:59 05:59 05:59 Intake Total 1000 Output Total 450 1325 Balance 550 -1325 Intake: Oral (ml) 1000 Output: Urine (ml) 450 1325 Urinal 450 1325 Other: Intake Quantity Yes Yes Sufficient Number of Voids Urinal 1 1 Bladder Scan Volume (ml) Urinal 606 Post Void Residual Scan Volume (ml) Urinal 619 514 Vital Signs Temp Pulse Resp BP Pulse Ox 36.6 C 50 L 16 177/74 H 92 01/11/17 04:00 01/11/17 04:00 01/11/17 04:00 01/11/17 06:39 01/11/17 04:00 Laboratory Results 01/10/17 05:07 ICD10 Worksheet Patient Problems: Problems Problem Status Onset Hyperesthesia Acute Right leg weakness Acute Spinal stenosis, lumbar region with neurogenic claudication Acute
[2017-01-11 07:58] VITALS: RESP 128; TEMP 97.7; O2SAT 95
[2017-01-11] MEDS: TAMSULOSIN HCL 0.4 MG CAP PO SCH (08:49)
[2017-01-11] MEDS: methylPREDNISolone 4 MG TAB PO SCH ×2 (08:49→13:05)
[2017-01-11] MEDS: CARVEDILOL 25 MG TAB PO SCH (08:49)
[2017-01-11 08:50] VITALS: PULSE 64
[2017-01-11] MEDS: LISINOPRIL 20 MG TAB PO SCH (08:50)
[2017-01-11] MEDS: oxyCODONE IR 5 MG TAB PO PRN ×2 (09:01→13:07)
--- NOTE | 2017-01-11 10:28 | PDIAF ---
- Diagnosis Diagnosis: spinal stenosis Code Status: Full Code - Medication Management Discharge Medications: Medications to Continue on Transfer Carvedilol [Coreg (*)] 12.5 mg PO BIDMEAL 01/08/17 [Last Taken 01/07/17] Lisinopril [Zestril 20 mg (*)] 20 mg PO DAILY 01/08/17 [Last Taken 01/07/17] Tamsulosin HCl [Flomax 0.4 MG (*)] 0.4 mg PO DAILY 01/08/17 [Last Taken 01/07/17 ] Warfarin Sodium [Coumadin 1MG (*)] 0.5 mg PO MOTUWEFRSA 01/08/17 [Last Taken ] Warfarin Sodium [Coumadin 1MG (*)] 1 mg PO SUTH 01/08/17 [Last Taken 01/07/17] Warfarin Sodium [Coumadin 3MG (*)] 3 mg PO SUTH 01/08/17 [Last Taken 01/07/17] traZODone [traZODONE 50MG (*)] 50 mg PO HS 01/08/17 [Last Taken 01/07/17] Discharge Medications: Refer to the Discharge Home Medication list for PRN reason. - Orders Services needed: Home Care, Physical Therapy, Occupational Therapy Home Care Face to Face: I certify that this patient was under my care and that I had the required [id number] encounter meeting the encounter requirements on the discharge day. My findings support the fact that the patient is homebound as defined in Home Care Face to Face Continued: CMS Chapter 7 Medicare Benefits Manual 30.1.1 , The condition of the patient is such that there exists a normal inability to leave home and consequently, leaving home would require a considerable and taxing effort. Diet Texture: None - Follow Up Care Current Providers and Referrals: Toño Sanabria MD [Primary Care Provider] - As per Instructions
--- NOTE | 2017-01-11 10:31 | HOSPPROG ---
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 RLE weakness: attributable to L1L2 spine disease start steroids PT/OT daily appreciate neurosurgery input htn: continue meds VTE: warfarin therapy not a contraindication to steroids hold warfarin today given supratherapeutic INR pain: prn oxycodone dispo: home today > 30 minutes Subjective: feels well. weakness improved. amenable to discharge Objective: Vital Signs Temp Pulse Resp BP Pulse Ox 36.5 C 64 128 H 154/73 H 95 01/11/17 07:47 01/11/17 08:49 01/11/17 07:47 01/11/17 08:50 01/11/17 07:47 Laboratory Results 01/10/17 05:07 01/10/17 01/11/17 01/12/17 05:59 05:59 05:59 Intake Total 1000 300 Output Total 450 1325 350 Balance 550 -1325 -50 PT 39.0 SEC (12.0-15.0) H 01/11/17 04:35 INR 3.91 (0.83-1.16) H 01/11/17 04:35 - Physical Exam Constitutional: no apparent distress, appears nourished Eyes: PERRL, anicteric sclera Ears, Nose, Mouth, Throat: moist mucous membranes, hearing normal Cardiovascular: regular rate and rhythym, no murmur, rub, or gallop Respiratory: no respiratory distress, no rales or rhonchi Gastrointestinal: normoactive bowel sounds, soft, non-tender abdomen Genitourinary: no bladder fullness, No wells in urethra Skin: warm Musculoskeletal: full muscle strength Neurologic: AAOx3 ICD10 Worksheet Patient Problems: Problems Problem Status Onset Hyperesthesia Acute Right leg weakness Acute Spinal stenosis, lumbar region with neurogenic claudication Acute
--- NOTE | 2017-01-11 11:07 | ASMTCMCOM ---
CM Note CM Note Notes: CM Discharge Note: Patient will go back to the [place] where he lives independently with his . [facility] will see for PT/OT, I called Laura to notify her of his d/c. NAMRATA June to call report to [facility]. Patient's will be here around 1530 to transport him home. Date Signed: 01/11/2017 11:06 AM Electronically Signed By:Tiffany Sams RN
--- NOTE | 2017-01-11 11:50 | GDS ---
[f rep st] DISCHARGE SUMMARY DISCHARGE DIAGNOSES: 1. Lumbar spine stenosis with right lower extremity weakness. 2. 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 3. Hypertension. Please see admission history and physical by Dr. Herbert. HOSPITAL COURSE: The patient presented with right leg pain and weakness. He had MRI of his L-spine and C-spine showing severe canal stenosis with bilateral recess stenosis of L1-L2 level with borderli ne central canal stenosis at L3-L4. He had some right leg weakness. This improved with Medrol Dosep ak and physical therapy to the point where he was able to be safely discharged home with home PT and OT. He will complete a quick Medrol Dosepak. He was seen in consultation by Neurosurgery, who recom mended no urgent surgery, but we will see him in followup and plan for possible surgery. He does hav e a history of lumbar spine surgery in the past. /[id number]/MODL
[2017-01-11 12:08] VITALS: BP 177/74
--- NOTE | 2017-01-11 16:30 | ASDISCHSUM ---
Discharge Information Plan Status:Home with Home Health Medically Cleared to Leave: Discharge Date:01/11/2017 03:59 PM CM D/C Disposition:Home Health Service ADT D/C Disposition:Home Health Service Projected Discharge Date:01/11/2017 12:00 AM Transportation at D/C:Family Discharge Delay Reason: Follow-Up Date:01/11/2017 12:00 AM Discharge Slot: Final Diagnosis:Lower extremity weaknesss, Lumbar stenosis Placement Information Referral Type:*Home Health Care Services Referral ID:[id number] Provider Name:[facility] [address] [address] Address 2: City:[place] Selection Factors: State:[place] Patient Contact Information Contact Name:ISATU Relationship: Address:[address] [place] Work Phone: City:[place] Alternate Phone: [facility]/Zip Code:[place] [address] Email: Financial Information Financial Class: Primary Plan Desc:MEDICARE INPATIENT Primary Plan Number:[id number] Secondary Plan Desc:[facility] [place] Secondary Plan Number:[id number] Assessment Information [facility] CM Progress Note CM Note CM Note Notes: OT eval pending, MANAGER ADULT clears pt, PT rec HHC vs. SNF. Spoke w pt and Consuelo about d/c plan of care. Pt may opt for steroid injections to treat spine disease and hopes he will progress to be able to return home to the [facility] (there he can access PT/OT). Pt will consider SNF if he does not make progress. Left SNF choice list. Pt has a good local support system. Date Signed: 01/09/2017 03:05 PM Electronically Signed By:COSMO Cannon [facility] CM Progress Note CM Note CM Note Notes: Long talk with patient and . They are concerned that the steroids and pain medications won't be a cure and wondered what to do if patient has a reccurence of leg weakness. I encouraged them to call 911 and come back to the hospital and we would figure aout a new plan. At this time patient will be going home with HC. They were given a HC list and decided on [facility]. [facility] notified and sent a referral. Date Signed: 01/10/2017 05:56 PM Electronically Signed By:Felicita Mitchell LCSW [facility] CM Progress Note CM Note CM Note Notes: CM Discharge Note: Patient will go back to the [place] where he lives independently with his . [facility] will see for PT/OT, I called Laura to notify her of his d/c. NAMRATA June to call report to [facility]. Patient's will be here around 1530 to transport him home. Date Signed: 01/11/2017 11:06 AM Electronically Signed By:Tiffany Sams RN Intervention Information Intervention Type:*Incorrect Registration Date of Service:01/08/2017 06:19 PM Patient Type:Observation Staff Member:NAMRATA Kaplan Shelly Hours:0.25 Discipline: Severity:1 (0-1 Hours) Comment:Registered inpatient admit order writt en inpatient status. Intervention Type:*IM-Signed Date of Service:01/11/2017 11:31 AM Patient Type:Inpatient Staff Member:Mitzi Honeycutt Hours: Discipline: Severity: Comment:
[2017-01-12] MEDS ORDERED: methylPREDNISolone 4 MG TAB PO SCH (07:30)
[2017-01-13] MEDS ORDERED: methylPREDNISolone 4 MG TAB PO SCH (07:30)
[2017-01-14] MEDS ORDERED: methylPREDNISolone 4 MG TAB PO SCH (07:30)
== END 2017-01-11 15:59 | disposition home health service (06) | DRG 552 ==
LOC: INTOOBSV 17:22 → F3N 18:36 → OBSVTOIN 01-09 14:58
PROVIDERS: ADMIT Family Medicine; ATTEND Family Medicine
DX: M48.061 Spinal stenosis, lumbar region without neurogenic claudication (principal); M50.30 Other cervical disc degeneration, unspecified cervical region; Z91.81 History of falling; I10 Essential (primary) hypertension; Z86.718 Personal history of other venous thrombosis and embolism; Z79.01 Long term (current) use of anticoagulants; Z87.891 Personal history of nicotine dependence; Z98.1 Arthrodesis status; Z96.643 Presence of artificial hip joint, bilateral
CPT/HCPCS: 92610-GN; 96374; 97116-GP; 97161-GP; 97530-GP; G0378; G8978-GP-CK; G8979-GP-CI; G8980-GP-CI; G8996-GN-CH; G8997-GN-CH; G8998-GN-CH; J0360; J2405

== ENCOUNTER → 2017-01-18 | Outpatient (CLI) | payer OTHER | LOC: BMCIMAGING 10:21 | PROVIDERS: ATTEND Internal Medicine | DX: M11.261 Other chondrocalcinosis, right knee (principal); M25.761 Osteophyte, right knee; I70.201 Unspecified atherosclerosis of native arteries of extremities, right leg ==

== ENCOUNTER → 2017-01-26 | Outpatient (CLI) | payer OTHER | LOC: BMCIMAGING 15:52 | PROVIDERS: ATTEND Family Medicine | DX: M19.021 Primary osteoarthritis, right elbow (principal); M24.021 Loose body in right elbow; M25.421 Effusion, right elbow ==

== ENCOUNTER → 2017-03-18 | Outpatient (CLI) | payer OTHER | LOC: BMCIMAGING 15:48 | PROVIDERS: ATTEND Internal Medicine Rheumatology | DX: M25.831 Other specified joint disorders, right wrist (principal); M25.832 Other specified joint disorders, left wrist ==